=== PATIENT | female | born 1960 | race Caucasian/White ===

== ENCOUNTER → 2018-01-03 | Day surgery (SDC) | payer OTHER ==
[~2018-01-03] VITALS: Ht 160 cm; Wt 55.8 kg
[~2018-01-03] MED LIST: VITAMIN D1000 UNIT PO
--- NOTE | 2018-01-03 15:25 | Operative Report ---
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 She was then placed in the dorsal lithotomy position, and the vaginal area was sterilly prepped and draped. The coated speculum with suction attached was placed into the atrophic vagina, and the cervix was fully in view. The patient was properly grounded. 10cc of 1% Lidocaine with epinephrine was injected into the cervix circumferentially. A large curved LEEP hotwire was used to scoop across the middle of the cervix and remove a half-globe of tissue centered on the external os. Then an ECC was collected. The LEEP ball was used to cauterize the base of the wound and the surrounding pink cervical tissue at the external margins. There was very good hemostasis, and all instruments were removed from the vagina. The patient was returned to the supine position, awakened from anesthesia and transferred to recovery in very good condition. All counts were correct X2. Findings: Cervix multiparous, no discrete lesion, no bleeding. Discharge Disposition: Same Day Admissions
== END ==
LOC: STS 02:30
DX: N87.9 Dysplasia of cervix uteri, unspecified (principal); Z87.891 Personal history of nicotine dependence
CPT/HCPCS: J1885; J2250